=== PATIENT | female | born 1980 | race Asian ===

== ENCOUNTER 2018-08-08 05:49 | Day surgery (SDC) | payer OTHER ==
[2018-08-08] MEDS ORDERED: CEFAZOLIN 2 GM/50 ML (PMX) 50 ML IVPB (06:00)
[2018-08-08] MEDS ORDERED: LACTATED RINGER'S 1,000 ML IV* (06:00)
[2018-08-08] MEDS ORDERED: FENTAnyl 50 MCG/ML VIAL (07:14)
[2018-08-08] MEDS ORDERED: PROPOFOL 20 ML (07:14)
[2018-08-08] MEDS ORDERED: MIDAZOLAM 1 MG/ML 2 ML INJ (07:14)
[2018-08-08] MEDS ORDERED: LIDOCAINE 2% (SDV) 5 ML INJ (07:14)
[2018-08-08] MEDS ORDERED: ROCURONIUM 50 MG INJ (07:14)
[2018-08-08 07:29] LABS: ADD MAN DIFF? NO
[2018-08-08 07:37] LABS: WHITE BLOOD COUNT 5.8 10^3/ul (4.8-10.8)
[2018-08-08 07:37] LABS: BASOPHILS % 0.7 % (0.0-2.0); EOSINOPHILS # 0.3 10^3/ul (0.0-0.5); EOSINOPHILS % 4.3 % (0.0-7.0); HEMOGLOBIN 12.2 g/dl (12.0-16.0); LYMPHOCYTES % 34.8 % (15.0-51.0); MEAN CORPUSCULAR HEMOGLOBIN 28.8 pg (29.0-33.0); MEAN CORPUSCULAR HGB CONC 32.1 g/dl (32.0-37.0); MEAN CORPUSCULAR VOLUME 89.8 fl (82.0-101.0); MEAN PLATELET VOLUME 11.5 fl (7.4-10.4); MONOCYTE # 0.5 10^3/ul (0.3-0.9); PLATELET COUNT 234 10^3/UL (140-415); RED BLOOD COUNT 4.23 10^6/ul (4.20-5.40); RED CELL DISTRIBUTION WIDTH 12.3 % (11.5-14.5)
[2018-08-08 07:57] LABS: INR 0.93; PROTIME 12.6 Sec (11.9-14.9)
[2018-08-08] MEDS ORDERED: NEOSTIGMINE 3 MG/3 ML SYRINGE (08:01)
[2018-08-08] MEDS ORDERED: CEFAZOLIN 1 GM INJ (08:01)
[2018-08-08] MEDS ORDERED: ONDANSETRON 4 MG INJ (08:01)
[2018-08-08] MEDS ORDERED: GLYCOPYRROLATE 0.4 MG INJ (08:01)
[2018-08-08] MEDS ORDERED: FAMOTIDINE 20 MG INJ (08:02)
[2018-08-08] MEDS ORDERED: DEXAMETHASONE 4 MG/ML 5 ML INJ (08:02)
[2018-08-08] MEDS ORDERED: KETOROLAC 30 MG INJ (08:40)
[2018-08-08] MEDS: BUPIVACAINE 0.5%/EPI (SDV) 30 ML INJ (08:55)
[2018-08-08] MEDS ORDERED: ONDANSETRON 4 MG INJ IV (09:30)
[2018-08-08] MEDS ORDERED: MEPERIDINE 25 MG INJ IV (09:30)
[2018-08-08] MEDS ORDERED: FENTAnyl 50 MCG/ML VIAL IV (09:30)
[2018-08-08] MEDS ORDERED: OXYCODONE/ACETAMINOPHEN (5/325) TAB PO (09:30)
[2018-08-08] MEDS ORDERED: HYDROmorphONE 1 MG/5 ML IV SYRINGE IV ×2 (09:30)
[2018-08-08] MEDS: HYDROmorphONE 1 MG/5 ML IV SYRINGE IV (09:42)
== END 2018-08-08 10:40 | disposition home or self-care (01) ==
LOC: SDS 05:49
DX: Z30.2 Encounter for sterilization (principal)
CPT/HCPCS: 58600; 71045; 85025; 85610; 85730; 88302; 93005